=== PATIENT | female | born 1970 | race African-American/Black ===

== ENCOUNTER 2018-01-29 11:56 | Emergency (ER) | payer OTHER ==
[2018-01-29] MEDS ORDERED: KETOROLAC TROMETHAMINE 60 MG/2 ML VIAL IM ONE (12:19)
[2018-01-29] MEDS ORDERED: hydrOXYzine PAMOATE 50 MG CAPSULE (FP) PO ONE (12:19)
[2018-01-29 12:21] VITALS: BP 120/79; PULSE 81; TEMP 97.8; BMI 37.1
--- NOTE | 2018-01-29 12:22 | PDOC ---
History of Present Illness - General Chief Complaint: Headache Stated Complaint: STRUCK ON HEAD BY FALLING OBJECT Time Seen by Provider: 01/29/18 12:18 - History of Present Illness Initial Comments: 01/29/18 12:36 Complaint: Headache History of present illness: Patient with long history of migraines, only medication is Topamax, which she stopped approximately 3 months ago because she has had no headaches. Headaches are usually precipitated by stress. 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 She denies any head injury, but states that she was under a lot of stress after the episode and feels that this has precipitated a migraine. She has pain behind both eyes and photophobia. No nausea or vomiting. No focal neurologic symptoms or unsteadiness of gait. Review of systems: As noted above. In addition, no chest pain, shortness of breath, abdominal pain, fever, recent URI symptoms, sore throat, cough, urinary tract symptoms, vaginal bleeding or discharge Past medical history: Notable only for migraines since early adulthood, under the care of a neurologist, prescribed Topamax. Has not taken any medication for over 3 months. No other medical or surgical problems, including heart disease, neurological disease, or GI disease Social history: No tobacco alcohol or nonprescription drugs. Works as an or tech. Stress at work today but otherwise no emotional problems Family history: Reviewed and noncontributory including early coronary artery disease, metabolic diseases including diabetes, cancer Physical exam: Alert and oriented 3, well-developed well-nourished, mild distress due to headache and photophobia, but cheerful and cooperative Afebrile, vital signs normal Head atraumatic. PERRLA, fundi benign, ENT clear Neck supple without bruit mass or nodes Chest clear CV regular without murmur rub or gallop. Pulses full and symmetric. No JVD or edema. No bruits Abdomen soft nontender without mass or organomegaly Neurological C2 to 12 intact. Strength full and symmetric. No focal sensory or motor deficits. Gait stable and unimpaired Skin clear, no rash, adequate turgor and wet mucous membranes Extremities no CCE Impression: Migraine headache, precipitated by stress. No sign of significant head injury Plan: Symptomatic treatment, rest and follow-up as indicated. Past History - Past Medical History Allergies/Adverse Reactions: Allergies Allergy/AdvReac Type Severity Reaction Status Date / Time No Known Allergies Allergy Verified 01/29/18 12:07 Home Medications: Ambulatory Orders Topamax - PRN 01/29/18 COPD: No Other medical history: MIGRAINE HEADACHE - Suicide/Smoking/Psychosocial Hx Smoking History: Never smoked Hx Alcohol Use: No Substance Use Type: None *Physical Exam - Vital Signs Last Vital Signs Temp Pulse Resp BP Pulse Ox 97.8 F 81 15 120/79 95 01/29/18 11:57 01/29/18 11:57 01/29/18 11:57 01/29/18 11:57 01/29/18 11:57 Medical Decision Making - Medical Decision Making 01/29/18 13:44 Headache is resolved. Patient feels well. Fully ambulatory, asymptomatic, with follow-up as necessary by primary physician. *DC/Admit/Observation/Transfer Diagnosis at time of Disposition: Headache Qualifiers: Headache type: unspecified Headache chronicity pattern: acute headache Intractability: not intractable Qualified Code(s): R51 - Headache - Discharge Dispostion Disposition: HOME Condition at time of disposition: Improved Decision to Admit order: No - Referrals - Patient Instructions Printed Discharge Instructions: DI for Migraine Additional Instructions: Rest, fluids, ibuprofen or Aleve if needed. Return to ER if symptoms worsen. Otherwise follow-up with primary physician and neurologist. - Post Discharge Activity Forms/Work/School Notes: Back to Work
[2018-01-29] MEDS ORDERED: hydrOXYzine PAMOATE 25 MG CAPSULE (FP) PO ONE (12:25)
[2018-01-29] MEDS ORDERED: KETOROLAC TROMETHAMINE 60 MG/2 ML VIAL ONE (12:26)
== END 2018-01-29 14:00 | disposition home or self-care (01) ==
LOC: FER 11:56
PROC: 3E0233Z Introduction of Anti-inflammatory into Muscle, Percutaneous Approach (ICD-10-PCS; principal; 2018-01-29)
DX: R51 Headache (principal); W20.1XXA Struck by object due to collapse of building, initial encounter; Y93.89 Activity, other specified; Y92.234 Operating room of hospital as the place of occurrence of the external cause; Y99.0 Civilian activity done for income or pay
CPT/HCPCS: 99281-25

== ENCOUNTER 2020-01-26 09:05 | Emergency (ER) | payer OTHER ==
--- NOTE | 2020-01-26 09:22 | PDOC ---
History of Present Illness - General Stated Complaint: NEEDLE STICK Time Seen by Provider: 01/26/20 09:09 History Source: Patient Exam Limitations: No Limitations - History of Present Illness Initial Comments: 01/26/20 09:20 HPI 49 YOF with no sig medical history presenting with needlestick injury to her right index finger. 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 immediate washing. no wounds. no bleeding tetanus is up to date. hep b is up to date Review of Systems Constitutional: no fevers or chills. MUSCULOSKELETAL: No joint pain and swelling. No muscle pain/arthralgias. SKIN: no redness or skin changes, no discharge, no rash. +puncture wound Hematologic: no easy bruising/bleeding. NEUROLOGIC: No weakness, numbness or tingling. Allergic/Immunologic: no allergies All other systems reviewed and negative, or as documented in HPI. physical exam General: NAD, well appearing Vascular: 2+ radialis pulses symmetric and equal. Neuro: distal city engineer strength 5/5. sensation grossly intact in median/radial/ulnar distribution. MSK: soft compartments, Cap refill <2 sec. 2+ radialis pulses bilaterally and symmetric. FDP/FDS intact. no joint tenderness. FROM. Skin: color normal color, warm and well perfused. no skin break or wound visualized 01/26/20 09:34 Past History - Medical History Allergies/Adverse Reactions: Allergies Allergy/AdvReac Type Severity Reaction Status Date / Time No Known Allergies Allergy Verified 01/26/20 09:13 Home Medications: Ambulatory Orders NK [No Known Home Medication] 01/26/20 COPD: No - Psycho-Social/Smoking History Smoking History: Never smoked Medical Decision Making - Medical Decision Making 01/26/20 09:35 Vital Signs Temp Pulse Resp BP Pulse Ox 98.3 F 72 16 139/90 100 01/26/20 09:07 01/26/20 09:07 01/26/20 09:07 01/26/20 09:07 01/26/20 09:07 vitals reviewed wnl pt here with needlestick injury, paperwork filed source patient pending testing baseline testing performed - cbc/cmp, lfts, hep panel, hiv pt was wearing protective gear in setting of needlestick injury, very low risk of transmission of blood bourne pathogens, including hep B (per patient she is immunized), hep C and hiv no indication for prophylaxis treatment and discussed with the patient. area cleaned additionally with soap and water, bacitracin and bandaid no wounds were visualized after deep cleaning f/u employee health testing. DC stable condition. precautions reviewed and proper PPE and during disposal of sharps and performance of procedures. Discharge - Discharge Information Problems reviewed: Yes Clinical Impression/Diagnosis: Needlestick injury of finger Condition: Good Disposition: HOME - Admission No - Follow up/Referral Referrals: Emergency Dept,Physician, MD [Emergency Physician] - - Patient Discharge Instructions Patient Printed Discharge Instructions: DI for Puncture Wound Additional Instructions: follow up with employee health with your testing and the source patient baseline blood work was obtained, follow up on your results keep the area clean and dry always wear protective gear and gloves during procedures and be very careful with your cleaning - Post Discharge Activity
[2020-01-26 09:24] VITALS: BP 139/90; PULSE 72; TEMP 98.3; BMI 40.2
[2020-01-26 09:55] LABS: ALBUMIN 3.7 g/dl (3.4-5.0); BILIRUBIN,TOTAL 0.8 mg/dl (0.2-1); CALCIUM 8.9 mg/dl (8.5-10); CREATININE 0.7 mg/dl (0.55-1.3); POTASSIUM 3.7 mmol/L (3.5-5.1)
[2020-01-26 09:56] LABS: BASO % 1.2 % (0-2.0); EOS % 0.7 % (0-4.5); HEMATOCRIT 37.7 % (32.4-45.2); HEMOGLOBIN 12.2 GM/dl (10.7-15.3); LYMPH % 35.9 % (8-40); MCH 26.6 pg (25.7-33.7); MCHC 32.4 g/dl (32.0-36.0); MEAN CELL VOLUME 82.2 fl (80-96); MEAN PLT VOLUME 9.6 fl (7.5-11.1); MONO % 5.1 % (3.8-10.2); NEUT % 57.1 % (42.8-82.8); PLATELET COUNT 346 K/MM3 (134-434); RBC 4.58 M/mm3 (3.60-5.2); RDW 13.7 % (11.6-15.6); WHITE BLOOD COUNT 5.7 K/mm3 (4.0-10.8)
[2020-01-27 19:07] LABS: HEP B CORE AB, TOT Negative (Negative)
== END 2020-01-26 09:49 | disposition home or self-care (01) ==
LOC: FER 09:05
DX: Z77.21 Contact with and (suspected) exposure to potentially hazardous body fluids (principal)
CPT/HCPCS: 36415; 80053; 80074; 85025; 86704; 86705; 86706; 86707; 87389; 99283-25